=== PATIENT | female | born 1975 | race Caucasian/White ===

== ENCOUNTER 2018-07-25 06:36 | Emergency (ER) | payer BC ==
[~2018-07-25] VITALS: Ht 165.1 cm; Wt 63.5 kg
[2018-07-25] MEDS ORDERED: KETOROLAC TROMETHAMINE INJ 30 MG/ML VIAL ONE (06:54)
[2018-07-25] MEDS ORDERED: IV NS 0.9% 1,000 ML BAG IV ONE (07:00)
[2018-07-25] MEDS ORDERED: KETOROLAC TROMETHAMINE INJ 30 MG/ML VIAL IV ONE (07:00)
--- NOTE | 2018-07-25 07:00 | NUR ---
PT bbself from home c/c lower mid abd pain radiating down LLE x 1 day.+n/v/d.+dizziness.+menstruating. skin wnl. no S/S of acute distress noted. rr even and unlabored. pt placed on sanitation tank washer and pox. pt safety and comfort measures in place. md bedside for eval. warm blanket provided to pt
[2018-07-25 07:09] LABS: BASOPHILS % (AUTO) 0.2 % (0.0-2.0); EOSINOPHILS % (AUTO) 0.4 % (0.0-6.0); HEMATOCRIT 34 % (33-45); HEMOGLOBIN 11.5 g/dL (11.5-14.8); LYMPHOCYTES # (AUTO) 0.8 /CMM (0.8-4.8); LYMPHOCYTES % (AUTO) 10.3 % (20.0-44.0); MEAN CORPUSCULAR HGB CONC 33 g/dl (31.0-36.0); MEAN CORPUSCULAR VOLUME 99 fL (82-100); MONOCYTES # (AUTO) 0.6 /CMM (0.1-1.30); MONOCYTES % (AUTO) 7.1 % (2.0-12.0); NEUTROPHILS # (AUTO) 6.5 /CMM (1.8-8.9); PLATELET COUNT (AUTO) 284 /CMM (150-450); RDW COEFFICIENT OF VARIATION 13.1 (11.5-15.0); RED BLOOD CELL COUNT(AUTO) 3.48 MIL/uL (4.0-5.2); WHITE BLOOD COUNT (AUTO) 7.9 K/uL (4.3-11.0)
--- NOTE | 2018-07-25 07:09 | NUR ---
US ETA -030 MINUTES
[2018-07-25 07:11] LABS: APPEARANCE,URINE SL CLOUDY (CLEAR); BILIRUBIN,URINE NEGATIVE (NEGATIVE); BLOOD, URINE NEGATIVE Ery/uL (NEGATIVE); COLOR,URINE YELLOW (YELLOW); KETONES,URINE TRACE (NEGATIVE); LEUKOCYTE ESTERASE ,URINE NEGATIVE (NEGATIVE); NITRITE, URINE NEGATIVE (NEGATIVE); PH,URINE 8.5 (5.0-8.0); PROTEIN,URINE TRACE mg/dl (NEGATIVE); UGLUCOSE NEGATIVE (NEGATIVE); UROBILINOGEN,URINE 0.2 EU/dL (0.2)
[2018-07-25 07:16] LABS: CALCIUM, SERUM 8.7 mg/dL (8.5-10.1); CARBON DIOXIDE 27 mmol/L (21-32); CHLORIDE 102 mmol/L (98-107); CREATININE 0.9 mg/dL (0.6-1.3); GLUCOSE 123 mg/dL (74-106); POTASSIUM 3.7 mmol/L (3.5-5.1); SODIUM SERUM 140 mmol/L (136-145); UREA NITROGEN, BLOOD 26 mg/dL (7-18)
[2018-07-25 07:18] LABS: RBC,URINE 0-2 /HPF (0-2)
[2018-07-25 07:19] LABS: BACTERIA,URINE Few /HPF (None Seen)
[2018-07-25 07:20] LABS: SQUAMOUS EPITHELIAL CELL,UR Moderate /HPF (None Seen); WBC,URINE 0-2 /HPF (0-3)
[2018-07-25 07:21] LABS: ALANINE AMINOTRANSFERASE 195 U/L (12-78); ALBUMIN 3.7 g/dL (3.4-5.0); ALKALINE PHOSPHATASE 62 U/L (46-116); ASPARTATE AMINOTRANSFERASE 88 U/L (15-37); BILIRUBIN,DIRECT 0.1 mg/dL (0.0-0.2); BILIRUBIN,TOTAL 0.2 mg/dL (0.2-1.0); LIPASE 179 U/L (73-393); TOTAL PROTEIN, SERUM 7.2 g/dL (6.4-8.2)
[2018-07-25 07:23] LABS: TROPONIN I < 0.017 ng/mL (0.00-0.056)
--- NOTE | 2018-07-25 07:29 | NUR ---
report given to huey bennett for carmel
--- NOTE | 2018-07-25 07:47 | NUR ---
U/S TECH AT BEDSIDE FOR PELVIC ULTRASOUND
--- NOTE | 2018-07-25 07:55 | NUR ---
1 LITER NS COMPLETED 18 G LAC FLUSHES WELL NO REDNESS, SWELLING, OR PAIN PT BLOOD WORK DONE MD ORDERED ULTRA SOUND PAIN REDUCED AFTER MEDICATION.
[2018-07-25 08:31] VITALS: BP 107/54
== END 2018-07-25 08:32 | disposition home or self-care (01) ==
LOC: ER 06:39
DX: N94.6 Dysmenorrhea, unspecified (principal); R10.2 Pelvic and perineal pain; E86.0 Dehydration; F31.9 Bipolar disorder, unspecified; F39 Unspecified mood [affective] disorder; F10.10 Alcohol abuse, uncomplicated; Y90.9 Presence of alcohol in blood, level not specified; Z41.1 Encounter for cosmetic surgery
CPT/HCPCS: 36415; 76856; 80048; 80076; 81001; 83690; 84484; 84703; 85025; 96361; 96374; 99285; A4606; J1885; J7030; Z7610; 81000-TC